=== PATIENT | female | born 1980 ===

== ENCOUNTER 2016-11-05 15:13 | Emergency (ER) | payer BC ==
[2016-11-05 15:34] VITALS: BP 115/75; PULSE 81; RESP 20; TEMP 98.2; O2SAT 100
[2016-11-05] MEDS ORDERED: Oxycodone/Acetaminophen 5/325 mg Tab PO STA (15:38)
[2016-11-05] MEDS ORDERED: Oxycodone/Acetaminophen 5/325 mg Tab ONE (15:40)
--- NOTE | 2016-11-05 15:52 | ED PDOC ---
Upper Extremity Pain/Injury Time Seen by Provider: 11/05/16 15:30 Chief Complaint (Nursing): Upper Extremity Problem/Injury Chief Complaint (Provider): Right Thumb Pain History Per: Patient History/Exam Limitations: no limitations Onset/Duration Of Symptoms: Days (x1) Current Symptoms Are (Timing): Still Present Additional Complaint(s): 15:30 Moraima Spain is a 36 year old female that presents to the ED with a chief complaint of right thumb pain and swelling that she began to experience yesterday as a direct result of accidentally closing the car door on her thumb. Patient denies any numbness, tingling, or other injury. PMD: Radha Rodrigues Past Medical History Reviewed: Historical Data, Nursing Documentation, Vital Signs Vital Signs: Last Vital Signs Temp 98.2 F 11/05/16 15:30 Pulse 81 11/05/16 15:30 Resp 20 11/05/16 15:30 BP 115/75 11/05/16 15:30 Pulse Ox 100 11/05/16 15:30 - Family History Family History: States: Unknown Family Hx - Home Medications Home Medications: Ambulatory Orders Medication Instructions Recorded Naproxen [Naprosyn] 500 mg PO BID PRN #30 tab 11/05/16 Tramadol HCl [Ultram] 50 mg PO BID PRN #30 tablet 11/05/16 - Allergies Allergies/Adverse Reactions: Allergies Allergy/AdvReac Type Severity Reaction Status Date / Time bee venom protein (honey bee) Allergy URTICARIA Verified 11/05/16 15:28 Penicillins Allergy RASH Verified 11/05/16 15:28 environmental Allergy ITCHING Uncoded 11/05/16 15:28 Review of Systems Musculoskeletal: Positive for: Hand Pain (right thumb pain and swelling) Neurological: Negative for: Numbness, Other (no tingling) Physical Exam - Reviewed Nursing Documentation Reviewed: Yes Vital Signs Reviewed: Yes - Physical Exam Appears: Positive for: Non-toxic, In Acute Distress (Patient is in moderate painful distress) Head Exam: Positive for: ATRAUMATIC, NORMOCEPHALIC Skin: Positive for: Normal Color, Warm Extremity: Positive for: Tenderness (tenderness to distal phalanx right thumb), Swelling (mild swelling of distal phalanx right thumb), Other (subungual hematoma of right thumb, approximately 20%) Neurologic/Psych: Positive for: Alert, Oriented - ECG O2 Sat by Pulse Oximetry: 100 (RA) Pulse Ox Interpretation: Normal - Radiology X-Ray: Interpreted by Me (thumb xray) X-Ray Interpretation: No Acute Disease Medical Decision Making Medical Decision Makin:38 Initial Impression: Right Thumb Pain and Swelling Initial Plan: * 1 tab Oxycodone PO * X-Ray Right Thumb * Reevaluation Scribe Attestation: Documented by Soo Bergman, acting as a scribe for Kai Bourgeois PA-C. Provider Scribe Attestation: All medical record entries made by the Scribe were at my direction and personally dictated by me. I have reviewed the chart and agree that the record accurately reflects my personal performance of the history, physical exam, medical decision making, and the department course for this patient. I have also personally directed, reviewed, and agree with the discharge instructions and disposition. Procedures - Time-Out Type of Procedure: Subungual hematoma evacuation Site of Procedure: R thumb Correct Patient: Yes Correct Procedure: Yes Correct Site Marked: Yes PA/Tech: Bk - Nail Trepanation Nail Trepanation Location: R thumb Method of Drainage: nail cauterized Sterile Dressing Applied: Yes Finger Splint: No Progress: Blood was expressed from cautery site. Disposition - Clinical Impression Clinical Impression: Subungual hematoma - Patient ED Disposition Is Patient to be Admitted: No - Disposition Disposition: Routine/Home Disposition Time: 17:06 Condition: STABLE Prescriptions: Naproxen [Naprosyn] 500 mg PO BID PRN #30 tab PRN Reason: Pain Tramadol HCl [Ultram] 50 mg PO BID PRN #30 tablet PRN Reason: Other Instructions: Subungual Hematoma (ED) Print Language: CYMRAES
[2016-11-05] MEDS ORDERED: Lidocaine 1% Inj (20ml) INFIL ONE (16:40)
--- NOTE | 2016-11-05 16:45 | RAD ---
PROCEDURE: Right Hand Radiographs. HISTORY: Trauma. Anatomic area of interest: Thumb. COMPARISON: None. FINDINGS: BONES: Normal. No fracture. JOINTS: Normal. No osteoarthritic changes. SOFT TISSUES: Normal. OTHER FINDINGS: None. IMPRESSION: No acute findings related to/accounting for the clinical presentation.
== END 2016-11-05 17:32 | disposition home or self-care (01) ==
LOC: H.ER 15:13
DX: S69.91XA Unspecified injury of right wrist, hand and finger(s), initial encounter (principal); W22.8XXA Striking against or struck by other objects, initial encounter; Y92.89 Other specified places as the place of occurrence of the external cause; Z88.0 Allergy status to penicillin